=== PATIENT | male | born 1955 | race Caucasian/White ===

== ENCOUNTER → 2016-12-08 | Outpatient (CLI) | payer BC ==
[2016-11-25 14:40] VITALS: BP 127/81
[~2016-12-08] MED LIST: DYNAPEN 250MG250 MG PO; PERCOCET 325 MG1 TA2 PO
== END ==
LOC: LAB 10:34
DX: Z12.11 Encounter for screening for malignant neoplasm of colon (principal)

== ENCOUNTER → 2016-12-12 | Outpatient (CLI) | payer BC | LOC: LAB 14:44 | DX: Z51.81 Encounter for therapeutic drug level monitoring (principal); Z79.01 Long term (current) use of anticoagulants; Z96.651 Presence of right artificial knee joint ==

== ENCOUNTER 2016-12-19 15:33 | Outpatient (RCR) | payer BC ==
[2016-11-25 14:40] VITALS: BP 127/81
== END 2017-02-26 14:28 | disposition home or self-care (01) ==
LOC: PT 15:33 → EDSTATUS 15:34 → PT 02-26 14:28
DX: Z47.89 Encounter for other orthopedic aftercare (principal)

== ENCOUNTER → 2016-12-29 | Outpatient (CLI) | payer BC | LOC: LAB 15:25 | DX: B00.9 Herpesviral infection, unspecified (principal) ==

== ENCOUNTER → 2018-12-28 | Outpatient (CLI) | payer BC ==
[2016-11-25 14:40] VITALS: BP 127/81
[2018-12-28 09:35] LABS: EOS # 0.1 (0.04-0.40); EOS % 1.9 % (0.0-4.0); HEMATOCRIT 44.8 % (42.0-52.0); HEMOGLOBIN 15.1 g/dL (13.5-18.0); MEAN CELL VOLUME 89 fl (78-100); MEAN CORPUSCULAR HEMOGLOBIN 30 pg (27-31); MEAN CORPUSCULAR HGB CONC 34 g/dL (33-37); MEAN PLATELET VOLUME 9.9 fl (7.4-10.4); MONO # 0.5 (0.20-0.80); NEU # 3.5 (1.40-6.50); PLATELET COUNT 203 K/mm3 (130-400); RED BLOOD COUNT 5.03 M/mm3 (4.20-5.60); RED CELL DISTRIBUTION WIDTH 12.3 % (11.5-14.5); WHITE BLOOD COUNT 6.2 K/mm3 (4.8-10.8)
[2018-12-28 09:48] LABS: ALBUMIN 4.6 g/dL (3.5-5.0); CALCIUM 9.6 mg/dL (8.4-10.2); POTASSIUM 4.2 mmol/L (3.6-5.0); TOTAL BILIRUBIN 0.7 mg/dL (0.2-1.3); TOTAL PROTEIN 7.8 g/dL (6.3-8.2)
[2018-12-28 11:16] LABS: ERYTHROCYTE SEDIMENTATION RATE 4 mm/hr (0-20)
== END ==
LOC: LAB 09:13
PROVIDERS: Internal Medicine
DX: Z12.5 Encounter for screening for malignant neoplasm of prostate (principal); Z12.11 Encounter for screening for malignant neoplasm of colon; Z00.00 Encounter for general adult medical examination without abnormal findings

== ENCOUNTER → 2019-01-04 | Outpatient (CLI) | payer BC ==
[2016-11-25 14:40] VITALS: BP 127/81
== END ==
LOC: LAB 12:44
DX: Z12.11 Encounter for screening for malignant neoplasm of colon (principal); Z00.00 Encounter for general adult medical examination without abnormal findings

== ENCOUNTER → 2021-04-01 | Outpatient (CLI) | payer BC ==
[2016-11-25 14:40] VITALS: BP 127/81
[2021-04-01 10:03] LABS: EOS # 0.1 (0.04-0.40); HEMOGLOBIN 14.9 g/dL (13.5-18.0); MEAN CELL VOLUME 90 fl (78-100); MEAN CORPUSCULAR HEMOGLOBIN 30 pg (27-31); MEAN CORPUSCULAR HGB CONC 33 g/dL (33-37); MEAN PLATELET VOLUME 10.1 fl (7.4-10.4); MONO # 0.6 (0.20-0.80); NEU # 3.4 (1.40-6.50); PLATELET COUNT 205 K/mm3 (130-400); RED BLOOD COUNT 5.01 M/mm3 (4.20-5.60); RED CELL DISTRIBUTION WIDTH 12.4 % (11.5-14.5); WHITE BLOOD COUNT 6.1 K/mm3 (4.8-10.8)
[2021-04-01 10:13] LABS: POTASSIUM 4.4 mmol/L (3.5-5.1)
[2021-04-01 10:14] LABS: ALBUMIN 4.4 g/dL (3.4-4.8)
[2021-04-01 10:16] LABS: TOTAL PROTEIN 7.3 g/dL (6.2-8.1)
[2021-04-01 10:18] LABS: TOTAL BILIRUBIN 0.6 mg/dL (0.2-1.2)
[2021-04-01 11:31] LABS: ERYTHROCYTE SEDIMENTATION RATE 1 mm/hr (0-20)
== END ==
LOC: LAB 09:34
PROVIDERS: Internal Medicine
DX: M51.36 Other intervertebral disc degeneration, lumbar region (principal); M43.8X6 Other specified deforming dorsopathies, lumbar region

== ENCOUNTER 2023-10-30 08:00 | Outpatient (RCR) | payer MEDICARE, BC | END 2023-11-29 | disposition home or self-care (01) | LOC: PT | DX: M17.12 Unilateral primary osteoarthritis, left knee (principal); Z96.652 Presence of left artificial knee joint ==